=== PATIENT | male | born 1980 | race Two or more races ===

== ENCOUNTER 2021-01-05 15:40 | Emergency (ER) | payer OTHER ==
[~2021-01-05] VITALS: Ht 175.3 cm; Wt 70.5 kg
[~2021-01-05 15:40] MED LIST: [UNRECOGNIZED DRUG - CODE] PO
[2021-01-05 15:45] VITALS: BP 105/69
== END 2021-01-05 17:30 | disposition home or self-care (01) ==
LOC: EMS 15:40
DX: S63.617A Unspecified sprain of left little finger, initial encounter (principal); W31.89XA Contact with other specified machinery, initial encounter; Y93.89 Activity, other specified; Y92.89 Other specified places as the place of occurrence of the external cause; Y99.8 Other external cause status
CPT/HCPCS: 99283